=== PATIENT | female | born 1995 | race Two or more races ===

== ENCOUNTER 2024-11-20 09:43 | Emergency (ER) | payer OTHER ==
[~2024-11-20] VITALS: Ht 154.9 cm; Wt 68.5 kg
[2024-11-20] MEDS ORDERED: MOUNJARO2.5 MG/0.5 SQ (10:07)
[2024-11-20] MEDS ORDERED: ORPHENADRINE CITRATE 30 MG/ML AMPUL ONE (10:22)
[2024-11-20] MEDS ORDERED: KETOROLAC TROMETHAMINE 60 MG VIAL IM ONE ×2 (10:23→10:30)
[2024-11-20] MEDS ORDERED: ACETAMINOPHEN 500 MG GEL..CAP PO ONE ×2 (10:25→10:30)
[2024-11-20] MEDS ORDERED: ORPHENADRINE CITRATE 30 MG/ML AMPUL IM ONE (10:30)
[2024-11-20] MEDS ORDERED: IBU600 MG PO (11:14)
[2024-11-20] MEDS ORDERED: NORFLEX100MG PO (11:14)
== END 2024-11-20 11:22 | disposition home or self-care (01) ==
LOC: ER 09:43
DX: S90.31XA Contusion of right foot, initial encounter (principal); X58.XXXA Exposure to other specified factors, initial encounter; Y93.89 Activity, other specified; Y92.89 Other specified places as the place of occurrence of the external cause; Y99.9 Unspecified external cause status; E11.9 Type 2 diabetes mellitus without complications; Z79.4 Long term (current) use of insulin